=== PATIENT | male | born 1980 | race Caucasian/White ===

== ENCOUNTER 2018-07-15 12:53 | Emergency (ER) | payer MEDICAID ==
[~2018-07-15] VITALS: Ht 182.9 cm; Wt 87.5 kg
--- NOTE | 2018-07-15 13:13 | NUR ---
BRAULIO RA 87 and [employer] "was found on [address] naked- pants off running around agitated Given versed". TO ER BED 11, HOOKED TO MONITOR, AWAITING MD CEBALLOS.
--- NOTE | 2018-07-15 13:18 | NUR ---
PADDY GONZALEZT AT BEDSIDE
[2018-07-15 13:30] LABS: BASOPHILS # (AUTO) 0.1 /CMM (0.0-0.2); BASOPHILS % (AUTO) 0.6 % (0.0-2.0); EOSINOPHILS % (AUTO) 0.3 % (0.0-6.0); HEMATOCRIT 41 % (39-51); HEMOGLOBIN 13.8 g/dL (13.5-17.5); LYMPHOCYTES # (AUTO) 0.6 /CMM (0.8-4.8); LYMPHOCYTES % (AUTO) 6.3 % (20.0-44.0); MEAN CORPUSCULAR HGB CONC 34 g/dl (31.0-36.0); MEAN CORPUSCULAR VOLUME 86 fL (80-96); MONOCYTES # (AUTO) 0.6 /CMM (0.1-1.30); MONOCYTES % (AUTO) 5.5 % (2.0-12.0); NEUTROPHILS # (AUTO) 8.9 /CMM (1.8-8.9); NEUTROPHILS % (AUTO) 87.3 % (43.0-81.0); PLATELET COUNT (AUTO) 343 /CMM (150-450); RED BLOOD CELL COUNT(AUTO) 4.75 MIL/uL (4.5-6.0); WHITE BLOOD COUNT (AUTO) 10.2 K/uL (4.3-11.0)
[2018-07-15] MEDS ORDERED: IV NS 0.9% 1,000 ML BAG IV ONE (13:30)
[2018-07-15 13:38] LABS: CARBON DIOXIDE 24 mmol/L (21-32); CHLORIDE 102 mmol/L (98-107); CREATININE 1.2 mg/dL (0.6-1.3); GLUCOSE 92 mg/dL (74-106); POTASSIUM 3.8 mmol/L (3.5-5.1); SODIUM SERUM 137 mmol/L (136-145); UREA NITROGEN, BLOOD 14 mg/dL (7-18)
[2018-07-15 13:43] LABS: APPEARANCE,URINE Slightly Cloudy (CLEAR); BILIRUBIN,URINE Negative (NEGATIVE); BLOOD, URINE Trace-intact Ery/uL (NEGATIVE); COLOR,URINE Yellow (YELLOW); KETONES,URINE Negative (NEGATIVE); LEUKOCYTE ESTERASE ,URINE Negative (NEGATIVE); NITRITE, URINE Negative (NEGATIVE); PROTEIN,URINE 100 mg/dl (NEGATIVE); UGLUCOSE Negative (NEGATIVE); UROBILINOGEN,URINE 0.2 EU/dL (0.2)
[2018-07-15 13:50] LABS: BACTERIA,URINE Rare /HPF (None Seen); SQUAMOUS EPITHELIAL CELL,UR Rare /HPF (None Seen); WBC,URINE 0-2 /HPF (0-3)
[2018-07-15 13:51] LABS: ALANINE AMINOTRANSFERASE 26 U/L (12-78); ALBUMIN 4.2 g/dL (3.4-5.0); ALKALINE PHOSPHATASE 57 U/L (46-116); ASPARTATE AMINOTRANSFERASE 26 U/L (15-37); BILIRUBIN,DIRECT 0.1 mg/dL (0.0-0.2); BILIRUBIN,TOTAL 0.6 mg/dL (0.2-1.0); SALICYLATE 0.4 mg/dL (2.8-20.0); TOTAL PROTEIN, SERUM 7.8 g/dL (6.4-8.2)
[2018-07-15 13:52] LABS: ACETAMINOPHEN 0 ug/ml (10-30); ALCOHOL, BLOOD < 3 mg/dL (0-0)
[2018-07-15] MEDS ORDERED: LORAZEPAM INJ 2 MG/ML VIAL ONE (14:00)
[2018-07-15] MEDS ORDERED: LORAZEPAM INJ 2 MG/ML VIAL IV ONE (14:00)
--- NOTE | 2018-07-15 14:38 | NUR ---
PT AWAKE, SEEMS CALM. HOOKED TO MONITOR, KEPT SAFE AND COMFORTABLE.
--- NOTE | 2018-07-15 16:43 | NUR ---
ALMITA CORRALES, MOTHER,
--- NOTE | 2018-07-15 18:35 | NUR ---
CALLED [facility] FOR EVAL, 1 HOUR ETA.
--- NOTE | 2018-07-15 19:00 | NUR ---
PT ASLEEP IN BED, HOOKED TO [place], KEPT SAFE AND WARM. WILL CONTINUE TO MONITOR
--- NOTE | 2018-07-15 19:30 | NUR ---
REPORT GIVEN TO ALEKSANDR TENORIO FOR [facility]
--- NOTE | 2018-07-15 21:05 | NUR ---
AMBULAlessandraZ CALLED TRANSPORT ETA:[id number] TRIP: [id number] # FOR REPORT: [id number] [phone] ADMITTING PSYCHIATRIST: DR. MEDEIROS ADMITTING DX: BIPOLAR DISORDER
--- NOTE | 2018-07-15 21:27 | NUR ---
REPORT GIVEN TO [facility]: PT ASSIGNED TO [facility] [id number]. NURSE NANCY TENORIO.
[2018-07-15 22:00] VITALS: BP 145/80
== END 2018-07-15 23:36 ==
LOC: ER 12:56
DX: F15.921 Other stimulant use, unspecified with intoxication delirium (principal); G92 Toxic encephalopathy; F31.9 Bipolar disorder, unspecified; F17.200 Nicotine dependence, unspecified, uncomplicated; R45.1 Restlessness and agitation; R00.0 Tachycardia, unspecified; F13.10 Sedative, hypnotic or anxiolytic abuse, uncomplicated
CPT/HCPCS: 36415; 80048; 80076; 80305; 80307; 80329; 81001; 85025; 93005; 96374; 99285; G0480; J2060; J7030; 81000-TC

== ENCOUNTER 2019-06-21 06:06 | Emergency (ER) | payer MEDICAID ==
[~2019-06-21] VITALS: Ht 185.4 cm; Wt 83.9 kg
[2019-06-21 06:15] VITALS: BP 137/88
--- NOTE | 2019-06-21 06:27 | NUR ---
Mc kelley in ED - 06/21/19 at 0629 by JAMEE HAVE BEEN STAYING AT [facility] SINCE JUNE 08. BEEN FEELING THE SYSPTOMS FOR 2-3 DAYS
--- NOTE | 2019-06-21 06:27 | NUR ---
HAVE BEEN STAYING AT [facility] SINCE JUNE 08. BEEN FEELING THE SYMPTOMS FOR 2-3 DAYS
--- NOTE | 2019-06-21 06:41 | NUR ---
BIBS, PT WAS STAYING AT [facility] SINCE JUN 08 AND CHECKED OUT YESTERDAY.AAOX4. NOT IN RESP DISTRES, BREATHING EVEN AND UNLABORED. AMBULATORY. C/O ITHCY AND PAIN THROAT, RUNNY NOSE AND COUGH FOR THE PAST 2-3 DAYS. PT STATES THAT THERE WHERE PEOPLE FROM [place] AND ALSO HAD CONTACT WITH SOMEONE WHO WAS SICK. PT IS AFEBRILE. PT IS PLACE ON ISOLATION PRECAUTION IN A ROOM W/ NEGATIVE PRESSURE. MD WAS AT BEDSIDE FOR EVAL. CHARGE NURSE ON PHONE WITH [facility].
--- NOTE | 2019-06-21 06:48 | NUR ---
REGAN GIBBS CALLED. SPOKE WITH DR EDGE. PT DOES NOT MEET CRITERIA FOR TESTING.
[2019-06-21] MEDS ORDERED: ACETAMINOPHEN 325 MG TABLET ONE (06:55)
[2019-06-21] MEDS ORDERED: ACETAMINOPHEN 325 MG TABLET PO ONE (07:00)
== END 2019-06-21 07:01 | disposition home or self-care (01) ==
LOC: ER 06:08
DX: J06.9 Acute upper respiratory infection, unspecified (principal)

== ENCOUNTER 2020-04-29 19:44 | Emergency (ER) | payer MEDICAID ==
[~2020-04-29] VITALS: Ht 182.9 cm; Wt 83.9 kg
--- NOTE | 2020-04-29 19:45 | NUR ---
PT BIBSELF C/O ABDOMINAL PAIN X1 WEEK. PT AAOX4. VITAL SIGNS STABLE. RESPIRATIONS EVEN AND UNLABORED. AMBULATORY WITH STEADY GAIT. NO ACUTE DISTRESS NOTED AT THIS TIME. WILL CONTINUE TO MONITOR
[2020-04-29 20:57] LABS: BASOPHILS % (AUTO) 0.7 % (0.0-2.0); HEMATOCRIT 42 % (39-51); HEMOGLOBIN 14.3 g/dL (13.5-17.5); LYMPHOCYTES # (AUTO) 1.1 /CMM (0.8-4.8); LYMPHOCYTES % (AUTO) 19.4 % (20.0-44.0); MEAN CORPUSCULAR HGB CONC 34 g/dl (31.0-36.0); MEAN CORPUSCULAR VOLUME 87 fL (80-96); MONOCYTES # (AUTO) 0.6 /CMM (0.1-1.30); MONOCYTES % (AUTO) 11.1 % (2.0-12.0); NEUTROPHILS # (AUTO) 3.7 /CMM (1.8-8.9); NEUTROPHILS % (AUTO) 64.8 % (43.0-81.0); PLATELET COUNT (AUTO) 251 /CMM (150-450); RED BLOOD CELL COUNT(AUTO) 4.86 MIL/uL (4.5-6.0); WHITE BLOOD COUNT (AUTO) 5.7 K/uL (4.3-11.0)
[2020-04-29 21:27] LABS: CALCIUM, SERUM 9.1 mg/dL (8.5-10.1); CREATININE 1.1 mg/dL (0.6-1.3); POTASSIUM 3.9 mmol/L (3.5-5.1)
[2020-04-29 21:34] LABS: ALBUMIN 3.6 g/dL (3.4-5.0); BILIRUBIN,DIRECT 0.1 mg/dL (0.0-0.2); BILIRUBIN,TOTAL 0.2 mg/dL (0.2-1.0); TOTAL PROTEIN, SERUM 7.7 g/dL (6.4-8.2)
[2020-04-29 21:40] LABS: BILIRUBIN,URINE Negative (NEGATIVE); COLOR,URINE YELLOW (YELLOW); LEUKOCYTE ESTERASE ,URINE Negative (NEGATIVE); NITRITE, URINE Negative (NEGATIVE); PROTEIN,URINE Negative (NEGATIVE); UGLUCOSE Negative (NEGATIVE); UROBILINOGEN,URINE 0.2 EU/dL (0.2)
[2020-04-29] MEDS ORDERED: IV NS 0.9% 250 ML IV ONE (22:12)
[2020-04-29] MEDS ORDERED: IOHEXOL-300 100 ML VIAL IV ONE (22:12)
--- NOTE | 2020-04-29 22:16 | NUR ---
PT BROUGHT BY RADIOLOGY TO CT
--- NOTE | 2020-04-29 23:00 | NUR ---
Patient discharged to home in stable condition. Written and verbal after care instructions given. Patient verbalizes understanding of instruction.IV removed. Catheter intact and site benign. Pressure and 4x4 applied to site. No bleeding noted.Pt ambulatory with a steady gait
[2020-04-29 23:02] VITALS: BP 138/79
== END 2020-04-29 23:02 | disposition home or self-care (01) ==
LOC: ER 19:49
DX: R10.9 Unspecified abdominal pain (principal); Z20.822 Contact with and (suspected) exposure to COVID-19; Z94.89 Other transplanted organ and tissue status
CPT/HCPCS: 36415; 74177; 80048; 80076; 81003; 83690; 85025; 87426; 99285; C9803; J7050; Q9967